=== PATIENT | female | born 1955 ===

== ENCOUNTER 2021-07-13 09:01 | Emergency (ER) | payer MEDICARE, OTHER, SELFPAY ==
--- NOTE | 2021-07-13 09:17 | ED_ITS ---
HPI - General Adult General Chief complaint: Urogenital-Female Stated complaint: kidney infection Time Seen by Provider: 07/13/21 09:03 Source: patient Mode of arrival: Ambulatory Limitations: no limitations History of Present Illness HPI narrative: 65-year-old female who was sent to the emergency department by her primary provider for evaluation potential kidney infection. Patient states that 2 weeks ago she was diagnosed with a urinary tract infection after having dysuria and urinary frequency and urgency. She was placed on Macrobid. She stated that her symptoms improved but then when she stopped the antibiotics they came back again. She was then switched to Cipro. She has 1 day left of the Cipro. She states that since she started the Cipro she has continued to have symptoms which she describes as lower back pain. She is not having any dysuria or frequency. No fevers. No abdominal pain. No nausea vomiting. No diarrhea. Related Data Previous Rx's Medication Instructions Recorded phenazopyridine 100 mg tablet 100 mg PO TID PRN #6 tab 07/13/21 (Pyridium) Allergies Allergy/AdvReac Type Severity Reaction Status Date / Time dextrose AdvReac Mild NAUSEA Verified 07/13/21 09:26 hydrochlorothiazide AdvReac Mild MEMORY LOSS Verified 07/13/21 09:26 potassium AdvReac Mild NAUSEA Verified 07/13/21 09:26 sodium chloride AdvReac Mild NAUSEA Verified 07/13/21 09:26 Sulfa (Sulfonamide AdvReac Mild BACK PAIN Verified 07/13/21 09:26 Antibiotics) zolpidem AdvReac Mild MEMORY LOSS Verified 07/13/21 09:26 Review of Systems Review of Systems ROS Unobtainable: All systems reviewed & are unremarkable except as noted in HPI and below Patient History Medical History Hypothyroid Social History (Updated 07/13/21 @ 09:19 by Broderick Garvin DO) lives independently: Yes Smoking Status: Never smoker Exam Initial Vital Signs Initial Vital Signs: Vital Signs Temperature 98.8 F 07/13/21 09:21 Pulse Rate 60 07/13/21 09:21 Respiratory Rate 18 07/13/21 09:21 Blood Pressure 141/82 H 07/13/21 09:21 Pulse Oximetry 100 07/13/21 09:21 HENMT Head: normal to inspection and normocephalic Resp Effort & Inspection: normal respiratory effort Auscultation: clear to auscultation bilaterally Cardio Rate: regular rate Rhythm: regular rhythm GI Inspection: normal to inspection Palpation: soft, No firm and No tender Back/Spine/Pelvis Back: No CVA tenderness Thoracic/Lumbar Spine: paraspinal tenderness (Bilateral lower lumbar), No thoracic spinal tenderness and No lumbar spinal tenderness Skin General: no rashes or lesions noted Neuro General: patient alert, patient awake and moves all extremities Extrem General: normal to inspection and capillary refill normal Psych Appearance: grossly normal and well kempt Course Orders Ordered: ED Orders 07/13/21 09:50 Basic Metabolic Panel Stat Complete Blood Count AUTO DIFF Stat Lactate (Lactic Acid) Stat 07/13/21 10:05 Urinalysis and Microscopic Stat Urine Culture Stat Urine Culture Stat Vital Signs Vital signs: Vital Signs - 8 hr 07/13/21 09:21 Temperature 98.8 F Pulse Rate 60 Respiratory Rate 18 Blood Pressure 141/82 H Pulse Oximetry 100 Medical Decision Making Medical Records Medical records reviewed: Yes I reviewed the patient's medical records. Lab Data Lab results reviewed: Yes I reviewed the patient's lab results. Result diagrams: 07/13/21 09:50 07/13/21 09:50 Labs: Lab Results 07/13/21 07/13/21 07/13/21 Range/Units 09:50 09:50 09:50 WBC 5.6 (4.5-11.0) X10^3/uL RBC 4.96 (4.0-5.2) X10^6/uL Hgb 15.3 (12.0-16.0) g/dL Hct 44.4 (36-46) % MCV 89.5 (80-100) fL MCH 30.8 (26-34) PG MCHC 34.4 (30-36) % RDW 13.2 (11.6-14.8) % Plt Count 189 (150-400) X10^3/uL Neut % (Auto) 64.0 (50-75) % Lymph % (Auto) 23.9 L (25-40) % [place] % (Auto) 9.6 (3-14) % Eos % (Auto) 1.9 L (2-4) % Baso % (Auto) 0.6 (0-2) % Neut # (Auto) 3600 (7707-0556) /uL Lymph # (Auto) 1300 (8047-8482) /uL [place] # (Auto) 500 (0-900) /uL Eos # (Auto) 100 (0-450) /uL Baso # (Auto) 0 (0-100) /uL Sodium 136 L (137-145) mmol/L Potassium 3.7 (3.4-5.1) mmol/L Chloride 102 (98-107) mmol/L Carbon Dioxide 31 (22-32) mmol/L BUN 15 (7-17) mg/dL Creatinine 0.74 (0.52-1.04) mg/dL Estimated GFR > 60 (>60) mL/min BUN/Creatinine Ratio 20.3 (6-22) Glucose 105 (80-110) mg/dL Lactate 1.1 (0.7-2.1) mmol/L Calcium 8.7 (8.4-10.2) mg/dL Urine Color Urine Appearance Urine pH (4.5-8.0) Ur Specific [place] (1.000-1.035) Urine Protein (Negative) Urine Glucose (UA) (Negative) g/dL Urine Ketones (NEGATIVE) Urine Occult Blood (Negative) Urine Nitrate (Negative) Urine Bilirubin (NEGATIVE) Urine Urobilinogen (0.2) E.U./dL Ur Leukocyte Esterase (NEGATIVE) Urine RBC (0-5/HPF) Urine WBC (0-5/HPF) Ur Squamous Epith Cells (0-5/HPF) Amorphous Sediment Urine Bacteria (None) Ur Culture Indicated? 07/13/21 Range/Units 10:05 WBC (4.5-11.0) X10^3/uL RBC (4.0-5.2) X10^6/uL Hgb (12.0-16.0) g/dL Hct (36-46) % MCV (80-100) fL MCH (26-34) PG MCHC (30-36) % RDW (11.6-14.8) % Plt Count (150-400) X10^3/uL Neut % (Auto) (50-75) % Lymph % (Auto) (25-40) % [place] % (Auto) (3-14) % Eos % (Auto) (2-4) % Baso % (Auto) (0-2) % Neut # (Auto) (9040-5331) /uL Lymph # (Auto) (7791-6473) /uL [place] # (Auto) (0-900) /uL Eos # (Auto) (0-450) /uL Baso # (Auto) (0-100) /uL Sodium (137-145) mmol/L Potassium (3.4-5.1) mmol/L Chloride (98-107) mmol/L Carbon Dioxide (22-32) mmol/L BUN (7-17) mg/dL Creatinine (0.52-1.04) mg/dL Estimated GFR (>60) mL/min BUN/Creatinine Ratio (6-22) Glucose (80-110) mg/dL Lactate (0.7-2.1) mmol/L Calcium (8.4-10.2) mg/dL Urine Color Yellow Urine Appearance Clear Urine pH 5.0 (4.5-8.0) Ur Specific [place] 1.010 (1.000-1.035) Urine Protein Negative (Negative) Urine Glucose (UA) Negative (Negative) g/dL Urine Ketones Negative (NEGATIVE) Urine Occult Blood Trace-lysed (Negative) Urine Nitrate Negative (Negative) Urine Bilirubin Negative (NEGATIVE) Urine Urobilinogen 0.2 (0.2) E.U./dL Ur Leukocyte Esterase Trace H (NEGATIVE) Urine RBC 0-1/hpf (0-5/HPF) Urine WBC 5-10/hpf H (0-5/HPF) Ur Squamous Epith Cells 0-1 /hpf (0-5/HPF) Amorphous Sediment 3+ Urine Bacteria Few (2-10) H (None) Ur Culture Indicated? Specimen cultured MDM Narrative Medical decision making narrative: Nontoxic. Afebrile. No leukocytosis. Normal kidney function. Does have bacteria white blood cells in her urine. Patient does have paperwork from urine cultures performed the outside facility. Does show a E coli that was sensitive to everything except for Macrobid. Macrobid was the 1st antibiotic that she was on. She is currently on Cipro and this bacteria his susceptible to this. She has 1 tablet left of the Cipro. Her lower back discomfort is lower than the level of the kidneys. No CVA tenderness. Low suspicion for pyelonephritis. Will give 2 g of Rocephin here in the ER. A urine culture was obtained. Will hold on changing any other antibiotics until then. We will give her prescription for Pyridium. She was given return precautions. She expressed understanding and agreement. Discharge Plan Departure Patient Disposition: Home Clinical Impression: Urinary tract infection Instructions: DI for Urinary Tract Infection (UTI) Activity Restrictions/Additional Instructions: Continue to take the last dose of Cipro as directed. Contact your primary provider for a follow-up. Use the Pyridium as needed for any discomfort. Return to the emergency department for any new symptoms. Prescriptions: New phenazopyridine [Pyridium] 100 mg tablet 100 mg PO TID PRN (Reason: pain) Qty: 6 0RF Referrals: Jude Miranda DO [Primary Care Provider] -
[2021-07-13 09:21] VITALS: BP 141/82; PULSE 60; RESP 18; TEMP 37.1; O2SAT 100; BMI 25.4
[2021-07-13 10:08] LABS: Add Manual Diff / Slide Review NO; Basophils Absolute Auto 0 /uL (0-100); Basophils Percent Auto 0.6 % (0-2); Eosinophils Absolute Auto 100 /uL (0-450); Eosinophils Percent Auto 1.9 % (2-4); Hematocrit 44.4 % (36-46); Hemoglobin 15.3 g/dL (12.0-16.0); Lymphocytes Absolute Auto 1300 /uL (1100-4500); Lymphocytes Percent Auto 23.9 % (25-40); Mean Corpuscular HGB Conc 34.4 % (30-36); Mean Corpuscular Hemoglobin 30.8 PG (26-34); Mean Corpuscular Volume 89.5 fL (80-100); Monocytes Absolute Auto 500 /uL (0-900); Monocytes Percent Auto 9.6 % (3-14); Neutrophils Absolute Auto 3600 /uL (1500-7000); Platelet Count 189 X10^3/uL (150-400); Red Blood Cell Count 4.96 X10^6/uL (4.0-5.2); Red Cell Distribution Width 13.2 % (11.6-14.8); White Blood Cell Count 5.6 X10^3/uL (4.5-11.0)
[2021-07-13 10:13] LABS: Appearance Urine UA CLEAR; Bilirubin Urine UA NEGATIVE (NEGATIVE); Color Urine UA YELLOW; Glucose Urine UA NEGATIVE (Negative); Ketones Urine UA NEGATIVE (NEGATIVE); Leukocyte Esterase Urine UA TRACE (NEGATIVE); Nitrite Urine UA NEGATIVE (Negative); Occult Blood Urine UA TRACE-LYSED (Negative); Protein Urine UA NEGATIVE (Negative); Urobilinogen Urine UA 0.2 E.U./dL (0.2)
[2021-07-13 10:20] LABS: BUN Creatinine Ratio 20.3 (6-22); Blood Urea Nitrogen 15 mg/dL (7-17); Calcium 8.7 mg/dL (8.4-10.2); Carbon Dioxide 31 mmol/L (22-32); Chloride 102 mmol/L (98-107); Estimated Glomerular Filt Rate > 60 mL/min (>60); Glucose 105 mg/dL (80-110); HEMOLYSIS < 15 (0-50); Lactate (Lactic Acid) 1.1 mmol/L (0.7-2.1); Potassium 3.7 mmol/L (3.4-5.1); Sodium 136 mmol/L (137-145)
[2021-07-13 10:33] LABS: Amorphous Sediment Urine 3+; Bacteria Urine Few (2-10); Culture Indicated Urine Specimen Cultured; RBC Urine 0-1/HPF (0-5/HPF); Squamous Epithelial Cell Urine 0-1 /HPF (0-5/HPF); WBC Urine 5-10/HPF (0-5/HPF)
[2021-07-13] MEDS: cefTRIAXone 2,000 MG in SODIUM CHLORIDE 0.9% 100 ML 200 MG IV (11:00)
[2021-07-13 11:39] VITALS: BP 134/51; PULSE 64; RESP 18; TEMP 36.8; O2SAT 99
== END 2021-07-13 11:39 | disposition home or self-care (01) ==
PROVIDERS: Emergency Provider Emergency Medicine; PCP Family Medicine
DX: N39.0 Urinary tract infection, site not specified (principal)
CPT/HCPCS: 80048; 81001; 83605; 85025; 87086; 96365; 99283; 99284; J0696

== ENCOUNTER 2022-04-29 12:24 | Emergency (ER) | payer MEDICARE, OTHER, SELFPAY ==
[2022-04-29] VITALS (12 sets, daily range): BP systolic 111–157; BP diastolic 57–71; PULSE 71–79; RESP 13–20; TEMP 37.3–38.2; O2SAT 94–98; BMI 25.7
--- NOTE | 2022-04-29 12:38 | DI.RAD.S_ITS ---
PROCEDURE: XR CHEST 1V INDICATIONS: suspected sepsis TECHNIQUE: One view of the chest was acquired. COMPARISON: CT, CHEST ANGIO-PE, 12/02/2010, 17:45. FINDINGS: Surgical changes and devices: Right Port-A-Cath is present. Lungs and pleura: Faint opacities are noted in the right base. Mediastinum: Mediastinal contours appear normal. Heart size is enlarged. Bones and chest wall: Appearance of multiple right-sided rib fractures, appearing chronic Overlying soft tissues appear unremarkable. IMPRESSION: Faint right basilar opacities possibly representing atelectasis versus developing pneumonia. Dictated by: Heidi Vines M.D. on 04/29/2022 at 13:06 Approved by: Heidi Vines M.D. on 04/29/2022 at 13:07
[2022-04-29 12:57] LABS: Add Manual Diff / Slide Review NO; Basophils Absolute Auto 100 /uL (0-100); Basophils Percent Auto 0.4 % (0-2); Eosinophils Absolute Auto 0 /uL (0-450); Eosinophils Percent Auto 0.2 % (2-4); Hematocrit 35.3 % (36-46); Hemoglobin 11.9 g/dL (12.0-16.0); Lymphocytes Absolute Auto 500 /uL (1100-4500); Lymphocytes Percent Auto 2.6 % (25-40); Mean Corpuscular HGB Conc 33.7 % (30-36); Mean Corpuscular Hemoglobin 30.4 PG (26-34); Mean Corpuscular Volume 90.1 fL (80-100); Monocytes Absolute Auto 1900 /uL (0-900); Monocytes Percent Auto 10.7 % (3-14); Neutrophils Absolute Auto 15500 /uL (1500-7000); Neutrophils Percent Auto 86.1 % (50-75); Platelet Count 178 X10^3/uL (150-400); Red Blood Cell Count 3.92 X10^6/uL (4.0-5.2); Red Cell Distribution Width 12.5 % (11.6-14.8)
[2022-04-29 13:01] LABS: INR 1.3 (0.9-1.3); Prothrombin Time 15.1 SECONDS (10.1-12.7)
[2022-04-29 13:06] LABS: Alanine Aminotransferase 20 IU/L (<35); Albumin 3.5 g/dL (3.5-5.0); Albumin Globulin Ratio 1.2 (1.0-2.8); Alkaline Phosphatase 67 U/L (38-126); Aspartate Aminotransferase 22 IU/L (14-36); BUN Creatinine Ratio 18.8 (6-22); Bilirubin Total 0.6 mg/dL (0.2-1.3); Blood Urea Nitrogen 13 mg/dL (7-17); Calcium 8.4 mg/dL (8.4-10.2); Carbon Dioxide 30 mmol/L (22-32); Chloride 97 mmol/L (98-107); Estimated Glomerular Filt Rate > 60 mL/min (>60); Glucose 123 mg/dL (80-110); HEMOLYSIS < 15 (0-50); Lipase 11 U/L (23-300); Potassium 2.9 mmol/L (3.4-5.1); Sodium 134 mmol/L (137-145); Total Protein 6.5 g/dL (6.3-8.2)
[2022-04-29 13:07] LABS: Lactate (Lactic Acid) 1.3 mmol/L (0.7-2.1)
--- NOTE | 2022-04-29 13:10 | ED.GENADULT ---
HPI - General Adult General Chief complaint: Fever Stated complaint: abd pain, sent by iza ryan Time Seen by Provider: 04/29/22 13:00 Source: patient Mode of arrival: Ambulatory History of Present Illness HPI narrative: Patient is a 66-year-old female who has a history of cervical cancer. Has finished treatment. She states her last PET scan was ?reassuring? she recently spent 3 weeks in [place]. She did develop diarrhea while she was down there. That has improved but still having some soft stools. Over the past 7-10 days she states she generally has not felt very well. No vomiting. Does have lower abdominal pain. No urinary symptoms. No vaginal bleeding. No fevers. She was sent by her primary doctor for further evaluation. Related Data Allergies Allergy/AdvReac Type Severity Reaction Status Date / Time dextrose AdvReac Mild NAUSEA Verified 04/29/22 12:42 hydrochlorothiazide AdvReac Mild MEMORY LOSS Verified 04/29/22 12:42 potassium AdvReac Mild NAUSEA Verified 04/29/22 12:42 sodium chloride AdvReac Mild NAUSEA Verified 04/29/22 12:42 Sulfa (Sulfonamide AdvReac Mild BACK PAIN Verified 04/29/22 12:42 Antibiotics) zolpidem AdvReac Mild MEMORY LOSS Verified 04/29/22 12:42 Review of Systems Constitutional Constitutional: Reports system reviewed and no additional complaints, except as documented Cardiovascular Cardiovascular: Reports system reviewed and no additional complaints, except as documented Respiratory Respiratory: Reports system reviewed and no additional complaints, except as documented Gastrointestinal Gastrointestinal: Reports system reviewed and no additional complaints, except as documented Integumentary/Breasts Skin/Breast: Reports system reviewed and no additional complaints, except as documented Neurologic Neurologic: Reports system reviewed and no additional complaints, except as documented Hematologic/Lymphatic On Anticoagulants: No Patient History Medical History Hypothyroid Social History lives independently: Yes Smoking Status: Never smoker Smoking Status: Never smoker alcohol intake frequency: other Substance Use Type: does not use Exam Initial Vital Signs Initial Vital Signs: Vital Signs Temperature 100.8 F H 04/29/22 12:39 Pulse Rate 76 04/29/22 12:39 Respiratory Rate 17 04/29/22 12:39 Blood Pressure 111/57 L 04/29/22 12:39 Pulse Oximetry 98 04/29/22 12:39 Oxygen Delivery Method Room Air 04/29/22 12:39 Const General: cooperative, comfortable and No ill appearing HENMT Head: normal to inspection and normocephalic Cardio Rate: regular rate Rhythm: regular rhythm GI Inspection: normal to inspection and non-distended Palpation: tender Back/Spine/Pelvis Back: No CVA tenderness Skin General: no rashes or lesions noted Neuro General: patient alert, patient awake and moves all extremities Extrem General: normal to inspection Course Orders Ordered: ED Orders 04/29/22 12:38 XR chest 1V Stat EKG-12 Lead Stat RT Consult Eval and Treat NOW 04/29/22 12:44 Complete Blood Count AUTO DIFF Stat Comprehensive Metabolic Panel Stat Lactate (Lactic Acid) Stat Lipase Stat PTT Partial Thromboplastin Lucien Stat Procalcitonin Stat Prothrombin Time INR Stat 04/29/22 13:12 CT abdomen pelvis w con Stat 04/29/22 13:19 COVID19 -Nasal RAPID Stat 04/29/22 13:40 Urine Culture Stat Urine Microscopic Stat 04/29/22 14:59 Blood Culture Stat Discontinued Medications Sodium Chloride (Normal Saline 0.9%) 1,000 mls @ 1,000 mls/hr IV BOLUS ONE Stop: 04/29/22 13:37 Last Infusion: 04/29/22 15:05 Dose: 0 mls/hr Documented By: Admin: 04/29/22 13:11 Dose: 1,000 mls/hr Documented By: ARUNA Morphine Sulfate (Morphine 4 Mg/Ml Inj) 4 mg IV NOW ONE Stop: 04/29/22 13:29 Last Admin: 04/29/22 13:45 Dose: 4 mg Documented By: ARUNA Vital Signs Vital signs: Vital Signs - 8 hr 04/29/22 12:39 04/29/22 13:15 04/29/22 13:45 Temperature 100.8 F H Pulse Rate 76 73 77 Respiratory Rate 17 18 18 Blood Pressure 111/57 L 149/63 H 157/71 H Pulse Oximetry 98 96 98 Oxygen Delivery Method Room Air Room Air Room Air 04/29/22 13:47 04/29/22 14:00 04/29/22 14:00 Temperature Pulse Rate 78 79 Respiratory Rate 13 19 Blood Pressure 135/62 Pulse Oximetry 98 95 Oxygen Delivery Method Room Air 04/29/22 14:30 04/29/22 14:30 04/29/22 15:08 Temperature 99.2 F Pulse Rate 77 Respiratory Rate 18 Blood Pressure 135/61 Pulse Oximetry 95 Oxygen Delivery Method 04/29/22 15:00 04/29/22 15:00 04/29/22 15:30 Temperature Pulse Rate 76 Respiratory Rate Blood Pressure 131/63 124/61 Pulse Oximetry 95 Oxygen Delivery Method 04/29/22 15:30 04/29/22 16:00 04/29/22 16:00 Temperature Pulse Rate 72 71 Respiratory Rate 13 13 Blood Pressure 122/60 Pulse Oximetry 95 95 Oxygen Delivery Method 04/29/22 16:30 04/29/22 16:30 Temperature Pulse Rate 72 Respiratory Rate 20 Blood Pressure 123/58 L Pulse Oximetry 94 Oxygen Delivery Method Medical Decision Making Medical Records Medical records reviewed: Yes I reviewed the patient's medical records. Lab Data Lab results reviewed: Yes I reviewed the patient's lab results. 04/29/22 12:44 04/29/22 12:44 Labs: Lab Results 04/29/22 04/29/22 04/29/22 Range/Units 12:44 12:44 12:44 WBC 18.0 H (4.5-11.0) X10^3/uL RBC 3.92 L (4.0-5.2) X10^6/uL Hgb 11.9 L (12.0-16.0) g/dL Hct 35.3 L (36-46) % MCV 90.1 (80-100) fL MCH 30.4 (26-34) PG MCHC 33.7 (30-36) % RDW 12.5 (11.6-14.8) % Plt Count 178 (150-400) X10^3/uL Neut % (Auto) 86.1 H (50-75) % Lymph % (Auto) 2.6 L (25-40) % [place] % (Auto) 10.7 (3-14) % Eos % (Auto) 0.2 L (2-4) % Baso % (Auto) 0.4 (0-2) % Neut # (Auto) 49638 H (2266-1946) /uL Lymph # (Auto) 500 L (6089-0035) /uL [place] # (Auto) 1900 H (0-900) /uL Eos # (Auto) 0 (0-450) /uL Baso # (Auto) 100 (0-100) /uL PT 15.1 H (10.1-12.7) SECONDS INR 1.3 (0.9-1.3) APTT 32 (26-36) SECONDS Sodium 134 L (137-145) mmol/L Potassium 2.9 L (3.4-5.1) mmol/L Chloride 97 L (98-107) mmol/L Carbon Dioxide 30 (22-32) mmol/L BUN 13 (7-17) mg/dL Creatinine 0.69 (0.52-1.04) mg/dL Estimated GFR > 60 (>60) mL/min BUN/Creatinine Ratio 18.8 (6-22) Glucose 123 H (80-110) mg/dL Lactate (0.7-2.1) mmol/L Calcium 8.4 (8.4-10.2) mg/dL Total Bilirubin 0.6 (0.2-1.3) mg/dL AST 22 (14-36) IU/L ALT 20 (<35) IU/L Alkaline Phosphatase 67 (38-126) U/L Total Protein 6.5 (6.3-8.2) g/dL Albumin 3.5 (3.5-5.0) g/dL Globulin 3.0 (1.7-4.1) g/dL Albumin/Globulin Ratio 1.2 (1.0-2.8) Lipase 11 L (23-300) U/L Procalcitonin 0.19 (<0.5) ng/mL Urine RBC (0-5/HPF) Urine WBC (0-5/HPF) Amorphous Sediment Urine Bacteria (None) Urine Mucus (Negative) Ur Culture Indicated? SARS-CoV-2 (PCR) (Negative) 04/29/22 04/29/22 04/29/22 Range/Units 12:44 13:19 13:40 WBC (4.5-11.0) X10^3/uL RBC (4.0-5.2) X10^6/uL Hgb (12.0-16.0) g/dL Hct (36-46) % MCV (80-100) fL MCH (26-34) PG MCHC (30-36) % RDW (11.6-14.8) % Plt Count (150-400) X10^3/uL Neut % (Auto) (50-75) % Lymph % (Auto) (25-40) % [place] % (Auto) (3-14) % Eos % (Auto) (2-4) % Baso % (Auto) (0-2) % Neut # (Auto) (9407-0324) /uL Lymph # (Auto) (4050-4644) /uL [place] # (Auto) (0-900) /uL Eos # (Auto) (0-450) /uL Baso # (Auto) (0-100) /uL PT (10.1-12.7) SECONDS INR (0.9-1.3) APTT (26-36) SECONDS Sodium (137-145) mmol/L Potassium (3.4-5.1) mmol/L Chloride (98-107) mmol/L Carbon Dioxide (22-32) mmol/L BUN (7-17) mg/dL Creatinine (0.52-1.04) mg/dL Estimated GFR (>60) mL/min BUN/Creatinine Ratio (6-22) Glucose (80-110) mg/dL Lactate 1.3 (0.7-2.1) mmol/L Calcium (8.4-10.2) mg/dL Total Bilirubin (0.2-1.3) mg/dL AST (14-36) IU/L ALT (<35) IU/L Alkaline Phosphatase (38-126) U/L Total Protein (6.3-8.2) g/dL Albumin (3.5-5.0) g/dL Globulin (1.7-4.1) g/dL Albumin/Globulin Ratio (1.0-2.8) Lipase (23-300) U/L Procalcitonin (<0.5) ng/mL Urine RBC 0-1/hpf (0-5/HPF) Urine WBC 5-10/hpf H (0-5/HPF) Amorphous Sediment 1+ Urine Bacteria Occasional (0-1) (None) Urine Mucus 3+ H (Negative) Ur Culture Indicated? Specimen cultured SARS-CoV-2 (PCR) Negative (Negative) Urine Dip Bedside Urine Glucose Negative Bedside Urine Bilirubin - Negative Bedside Urine Ketone +++ 80 Urine Specific [place] 1.015 Bedside Urine Occult Blood +++ Bedside Urine pH 6.0 Bedside Urine Protein ++ 100 Bedside Urine Urobilinogen +/- 1mg Bedside Urine Nitrite - Negative Bedside Urine Leukocytes - Negative Esterase Point of care testing: Urine Dip Bedside Urine Glucose Negative Bedside Urine Bilirubin - Negative Bedside Urine Ketone +++ 80 Urine Specific [place] 1.015 Bedside Urine Occult Blood +++ Bedside Urine pH 6.0 Bedside Urine Protein ++ 100 Bedside Urine Urobilinogen +/- 1mg Bedside Urine Nitrite - Negative Bedside Urine Leukocytes - Negative Esterase Imaging Data Chest x-ray: Radiologist's Impression: PROCEDURE:? XR CHEST 1V ? INDICATIONS:? suspected sepsis ? TECHNIQUE:? One view of the chest was acquired.? ? COMPARISON:? CT, CHEST ANGIO-PE, 12/02/2010, 17:45. ? FINDINGS:? ? Surgical changes and devices:? Right Port-A-Cath is present. ? Lungs and pleura:? Faint opacities are noted in the right base. ? Mediastinum:? Mediastinal contours appear normal.? Heart size is enlarged. ? Bones and chest wall:? Appearance of multiple right-sided rib fractures, appearing chronic Overlying soft tissues appear unremarkable.? ? IMPRESSION:? Faint right basilar opacities possibly representing atelectasis versus developing pneumonia CT scan - abdomen/pelvis: Radiologist's Impression: PROCEDURE:? CT ABDOMEN PELVIS W CON ? INDICATIONS:? History of cervical cancer with generalized lower abdominal ? TECHNIQUE:? After the administration of IV contrast, axial sections were acquired from the lung bases to the pubic symphysis.? Coronal and sagittal reformats were performed.? For radiation dose reduction, the following was used:? automated exposure control, adjustment of mA and/or kV according to patient size. ? COMPARISON:? None. ? FINDINGS:? Image quality:? Portions of the lower pelvis are suboptimally evaluated secondary to metallic streak artifact from sacroiliac fusion. ? Lung bases:? Unremarkable.? ? Heart:? Mild pericardial effusion.. ? ? ABDOMEN: Liver:? Hepatic steatosis is present with several scattered subcentimeter areas of low attenuation. Gallbladder:? Unremarkable.? ? Biliary ducts:? Unremarkable.? ? Pancreas:? Unremarkable.? ? Spleen:? Subcentimeter low attenuation foci are present within the spleen. Adrenal Glands:? Unremarkable.? ? Kidneys and Ureters:? Unremarkable.? ? ? Stomach and Bowel:? Stomach, small bowel loops, and colon are unremarkable.? Peritoneum:? No abnormal intraperitoneal fluid.? No free air.? ? Ventral Wall: ? No hernia.? Abdominal Nodes:? No retroperitoneal or mesenteric adenopathy by size criteria.? Vessels:? Aorta and inferior vena cava are normal in size.? ? PELVIS: Pelvic Organs:? There is marked thickening with low-attenuation internal distention of what appears to be the uterus extending to the lower uterine canal.? No priors are available for comparison.? Bladder:? The bladder is noted in the anterior most aspect of the lower pelvis incompletely distended. Pelvic Nodes: No enlarged lymph nodes.? Miscellaneous: No inguinal hernias are seen. ? ? ? Bones:? Sacroiliac fusion.? Old-appearing right 7th and 8th rib fractures.? They are incompletely visualized.? Old inferior right pubic ramus fracture. ? ? IMPRESSION:? ? Marked thickening of what appears to be the uterine wall with distension secondary to prominent internal low attenuation.? No priors are available for comparison.? Appearance appears most consistent with given history of cervical cancer.? Marked wall thickening may be secondary to treatment change. ? No acute intra-abdominal or pelvic process.? ECG Data Attestation: I personally reviewed and interpreted this ECG as follows: Interpretation: Sinus rhythm Ventricular rate is 73 Normal axis Normal QRS Normal QTC Nonspecific ST T wave changes MDM Narrative Medical decision making narrative: Patient does have a leukocytosis but a normal lactate and normal procalcitonin. She is nontoxic appearing. Chest x-ray has subtle opacities however clinically she does not have pneumonia. She is not having a productive cough and is not hypoxic and is not tachypneic and does not have abnormal lung sounds. Patient is also not having any urinary symptoms despite having bacteria and white blood cells in her urine. The CT scan of the abdomen shows no acute pathology. I did discuss the case with the patient's primary doctor Dr. Beard. We discussed her presentation today. We discussed her history. We discussed starting her on antibiotics I would potentially cover a pneumonia or urinary tract infection however there is also some concern that this may be a GI source. The patient is unable to provide us a stool sample here in the ER. Primary provider has ordered stool samples as an outpatient. After this discussion we will hold on further workup for now. I discussed this with the patient as well. Will discharge patient home. Primary doctor will follow her up in the next couple days. Cultures are pending at the time of her discharge. Discharge Plan Departure Patient Disposition: Home Clinical Impression: Fatigue, Hypokalemia Instructions: DI for Fatigue Activity Restrictions/Additional Instructions: I did discuss your presentation today with your primary doctor. After this discussion she would like to hold on any antibiotics and wait until the stool studies have completed. You do need to stop [place] lab [place] [employer] in [place] to parts picker supplies for this. Your potassium was somewhat low today. I recommend that you increase your potassium rich foods for the next couple days. Continue to take all your medications as directed. Return to the emergency department for any new or worsening symptoms. Referrals: Jude Miranda DO [Primary Care Provider] - Stand Alone Forms: Patient Portal/API
[2022-04-29 13:11] LABS: PTT Partial Thromboplastin Tim 32 SECONDS (26-36)
[2022-04-29] MEDS: SODIUM CHLORIDE 0.9% 1,000 ML 1000 ML IV (13:11)
--- NOTE | 2022-04-29 13:12 | DI.CT.S_ITS ---
PROCEDURE: CT ABDOMEN PELVIS W CON INDICATIONS: History of cervical cancer with generalized lower abdominal TECHNIQUE: After the administration of IV contrast, axial sections were acquired from the lung bases to the pubic symphysis. Coronal and sagittal reformats were performed. For radiation dose reduction, the following was used: automated exposure control, adjustment of mA and/or kV according to patient size. COMPARISON: None. FINDINGS: Image quality: Portions of the lower pelvis are suboptimally evaluated secondary to metallic streak artifact from sacroiliac fusion. Lung bases: Unremarkable. Heart: Mild pericardial effusion.. ABDOMEN: Liver: Hepatic steatosis is present with several scattered subcentimeter areas of low attenuation. Gallbladder: Unremarkable. Biliary ducts: Unremarkable. Pancreas: Unremarkable. Spleen: Subcentimeter low attenuation foci are present within the spleen. Adrenal Glands: Unremarkable. Kidneys and Ureters: Unremarkable. Stomach and Bowel: Stomach, small bowel loops, and colon are unremarkable. Peritoneum: No abnormal intraperitoneal fluid. No free air. Ventral Wall: No hernia. Abdominal Nodes: No retroperitoneal or mesenteric adenopathy by size criteria. Vessels: Aorta and inferior vena cava are normal in size. PELVIS: Pelvic Organs: There is marked thickening with low-attenuation internal distention of what appears to be the uterus extending to the lower uterine canal. No priors are available for comparison. Bladder: The bladder is noted in the anterior most aspect of the lower pelvis incompletely distended. Pelvic Nodes: No enlarged lymph nodes. Miscellaneous: No inguinal hernias are seen. Bones: Sacroiliac fusion. Old-appearing right 7th and 8th rib fractures. They are incompletely visualized. Old inferior right pubic ramus fracture. IMPRESSION: Marked thickening of what appears to be the uterine wall with distension secondary to prominent internal low attenuation. No priors are available for comparison. Appearance appears most consistent with given history of cervical cancer. Marked wall thickening may be secondary to treatment change. No acute intra-abdominal or pelvic process. Dictated by: Heidi Vines M.D. on 04/29/2022 at 14:34 Approved by: Heidi Vines M.D. on 04/29/2022 at 14:41
[2022-04-29 13:23] LABS: Procalcitonin 0.19 ng/mL (<0.5)
[2022-04-29 13:40] LABS: COVID19 -Nasal RAPID Negative (Negative)
[2022-04-29] MEDS: MORPHINE 4 MG/ML INJ IV (13:45)
[2022-04-29 14:17] LABS: Amorphous Sediment Urine 1+; Bacteria Urine Occasional (0-1); Culture Indicated Urine Specimen Cultured; Mucus Urine 3+ (Negative); RBC Urine 0-1/HPF (0-5/HPF); WBC Urine 5-10/HPF (0-5/HPF)
== END 2022-04-29 17:27 | disposition home or self-care (01) ==
PROVIDERS: Emergency Provider Emergency Medicine; PCP Family Medicine
DX: E87.6 Hypokalemia (principal); R53.83 Other fatigue; R10.30 Lower abdominal pain, unspecified; Z20.822 Contact with and (suspected) exposure to COVID-19
CPT/HCPCS: 36415; 71045; 74177; 80053; 81003; 81015; 83605; 83690; 84145; 85025; 85610; 85730; 87040; 87086; 87635; 93005; 93010; 96361; 96374; 99284; 99285; C9803; J2270; Q9967

== ENCOUNTER 2022-08-06 06:57 | Emergency (ER) | payer MEDICARE, OTHER, SELFPAY ==
[2022-08-06] VITALS (12 sets, daily range): BP systolic 128–147; BP diastolic 61–72; PULSE 65–70; RESP 18; TEMP 36.6; O2SAT 91–97; BMI 26.4
--- NOTE | 2022-08-06 07:30 | ED.GIBLEED ---
HPI - GI Bleed General Chief complaint: Nausea/Vomiting/Diarrhea Stated complaint: black stool, n/v Time Seen by Provider: 08/06/22 07:06 Source: patient Mode of arrival: Ambulatory History of Present Illness HPI Narrative: Patient is a 67-year-old female history of hypertension, cervical cancer treated in March, she presents today with black stools. Some going on for the last 2 days. She is having some lower abdominal pain well. She feels a little dizzy and lightheaded. She is not on antiplatelet or anticoagulation medication. She denies nausea or vomiting. She is not taken Pepto-Bismol or iron. gave her some Imodium yesterday she is not diarrhea today. She is definitely having some lower abdominal cramping. Related Data Previous Rx's Medication Instructions Recorded ondansetron 4 mg disintegrating 4 mg PO Q8H PRN nausea and 08/06/22 tablet vomiting #10 tabs Allergies Allergy/AdvReac Type Severity Reaction Status Date / Time dextrose AdvReac Mild NAUSEA Verified 04/29/22 12:42 hydrochlorothiazide AdvReac Mild MEMORY LOSS Verified 04/29/22 12:42 potassium AdvReac Mild NAUSEA Verified 04/29/22 12:42 sodium chloride AdvReac Mild NAUSEA Verified 04/29/22 12:42 Sulfa (Sulfonamide AdvReac Mild BACK PAIN Verified 04/29/22 12:42 Antibiotics) zolpidem AdvReac Mild MEMORY LOSS Verified 04/29/22 12:42 Review of Systems Review of Systems ROS Unobtainable: All systems reviewed & are unremarkable except as noted in HPI and below Patient History Medical History Hypothyroid Social History lives independently: Yes Smoking Status: Never smoker Smoking Status: Never smoker alcohol intake frequency: other Substance Use Type: does not use Exam Initial Vital Signs Initial Vital Signs: Vital Signs Pulse Rate 70 08/06/22 07:14 Blood Pressure 132/61 08/06/22 07:14 Pulse Oximetry 95 08/06/22 07:14 GENERAL: Alert 67-year-old female and in no acute distress. HEENT: Head atraumatic,EOMI, pupils reactive, face symmetric, moist mucous membranes CARDIOVASCULAR: Regular rate and rhythm without murmurs, rubs or gallops. RESPIRATORY: Breath sounds equal bilaterally, no wheezes rales or rhonchi. ABDOMEN: Soft, tender right lower quadrant no distention no guarding no rebound EXTREMITIES: Normal range of motion, no clubbing or edema. Neurovascularly intact NEUROLOGICAL: Alert and oriented x4. SKIN: Warm, dry, no laceration, no petechiae, no rashes or lesions. Course Orders Ordered: ED Orders 08/06/22 07:35 Complete Blood Count AUTO DIFF Stat Comprehensive Metabolic Panel Stat Lactate (Lactic Acid) Stat Lipase Stat Type and Screen Stat 08/06/22 07:36 CT abdomen pelvis w con Stat 08/06/22 08:06 Ictotest Urine Stat Urine Culture Stat Urine Microscopic Stat Discontinued Medications Heparin Sodium (Porcine) (Heparin 500 Unit/5 Ml Port Flush) 500 unit IV PRN PRN PRN Reason: Flush Last Admin: 08/06/22 10:33 Dose: 500 unit Documented By: CHELSEA Sodium Chloride (Normal Saline 0.9%) 1,000 mls @ 1,000 mls/hr IV BOLUS ONE Stop: 08/06/22 09:51 Last Infusion: 08/06/22 10:36 Dose: 0 mls/hr Documented By: Admin: 08/06/22 09:15 Dose: 1,000 mls/hr Documented By: CHELSEA Ketorolac Tromethamine (Ketorolac 30 Mg/Ml Vial) 15 mg IV NOW ONE Stop: 08/06/22 09:49 Last Admin: 08/06/22 10:02 Dose: 15 mg Documented By: CHELSEA Morphine Sulfate (Morphine 2 Mg/Ml Inj) 2 mg IV NOW ONE Stop: 08/06/22 08:53 Last Admin: 08/06/22 09:16 Dose: 2 mg Documented By: CHELSEA Pantoprazole Sodium (Pantoprazole 40 Mg Vial) 80 mg IV NOW ONE Stop: 08/06/22 07:18 Last Admin: 08/06/22 07:59 Dose: 80 mg Documented By: CHESLEA Vital Signs Vital signs: Vital Signs - 8 hr 08/06/22 07:18 08/06/22 07:14 08/06/22 07:14 Temperature 97.8 F Pulse Rate 69 70 Respiratory Rate 18 Blood Pressure 128/63 132/61 Pulse Oximetry 96 95 Oxygen Delivery Method Room Air 08/06/22 07:15 08/06/22 07:15 08/06/22 07:20 Temperature Pulse Rate 69 66 Respiratory Rate Blood Pressure 128/63 Pulse Oximetry 95 93 Oxygen Delivery Method 08/06/22 07:20 08/06/22 07:30 08/06/22 07:40 Temperature Pulse Rate 65 67 Respiratory Rate Blood Pressure 129/66 Pulse Oximetry 94 94 Oxygen Delivery Method 08/06/22 07:40 08/06/22 09:07 08/06/22 09:05 Temperature Pulse Rate 67 66 Respiratory Rate Blood Pressure 128/61 144/68 H Pulse Oximetry 95 91 Oxygen Delivery Method Room Air 08/06/22 09:06 08/06/22 09:30 08/06/22 10:00 Temperature Pulse Rate 67 67 69 Respiratory Rate Blood Pressure Pulse Oximetry 96 92 95 Oxygen Delivery Method 08/06/22 10:30 08/06/22 10:30 Temperature Pulse Rate 69 Respiratory Rate Blood Pressure 147/72 H Pulse Oximetry 97 Oxygen Delivery Method MDM - GI Bleed Lab Data 08/06/22 07:35 08/06/22 07:35 Labs: Lab Results 08/06/22 08/06/22 08/06/22 Range/Units 07:35 07:35 07:35 WBC 19.2 H (4.5-11.0) X10^3/uL RBC 4.06 (4.0-5.2) X10^6/uL Hgb 12.1 (12.0-16.0) g/dL Hct 35.8 L (36-46) % MCV 88.2 (80-100) fL MCH 29.8 (26-34) PG MCHC 33.8 (30-36) % RDW 13.3 (11.6-14.8) % Plt Count 241 (150-400) X10^3/uL Neut % (Auto) 90.0 H (50-75) % Lymph % (Auto) 3.0 L (25-40) % [place] % (Auto) 6.8 (3-14) % Eos % (Auto) 0.1 L (2-4) % Baso % (Auto) 0.1 (0-2) % Neut # (Auto) 44149 H (8736-5603) /uL Lymph # (Auto) 600 L (2115-4918) /uL [place] # (Auto) 1300 H (0-900) /uL Eos # (Auto) 0 (0-450) /uL Baso # (Auto) 0 (0-100) /uL Sodium 135 L (137-145) mmol/L Potassium 3.1 L (3.4-5.1) mmol/L Chloride 99 (98-107) mmol/L Carbon Dioxide 28 (22-32) mmol/L BUN 12 (7-17) mg/dL Creatinine 0.68 (0.52-1.04) mg/dL Estimated GFR > 60 (>60) mL/min BUN/Creatinine Ratio 17.6 (6-22) Glucose 132 H (80-110) mg/dL Lactate 0.9 (0.7-2.1) mmol/L Calcium 8.4 (8.4-10.2) mg/dL Total Bilirubin 0.6 (0.2-1.3) mg/dL AST 21 (14-36) IU/L ALT 17 (<35) IU/L Alkaline Phosphatase 57 (38-126) U/L Total Protein 6.6 (6.3-8.2) g/dL Albumin 3.5 (3.5-5.0) g/dL Globulin 3.1 (1.7-4.1) g/dL Albumin/Globulin Ratio 1.1 (1.0-2.8) Lipase 14 L (23-300) U/L Ur Bilirubin Confirm (Negative) Urine RBC (0-5/HPF) Urine WBC (0-5/HPF) Ur Squamous Epith Cells (0-5/HPF) Urine Bacteria (None) Ur Culture Indicated? Blood Type Antibody Screen 08/06/22 08/06/22 08/06/22 Range/Units 07:35 08:06 08:06 WBC (4.5-11.0) X10^3/uL RBC (4.0-5.2) X10^6/uL Hgb (12.0-16.0) g/dL Hct (36-46) % MCV (80-100) fL MCH (26-34) PG MCHC (30-36) % RDW (11.6-14.8) % Plt Count (150-400) X10^3/uL Neut % (Auto) (50-75) % Lymph % (Auto) (25-40) % [place] % (Auto) (3-14) % Eos % (Auto) (2-4) % Baso % (Auto) (0-2) % Neut # (Auto) (3482-3602) /uL Lymph # (Auto) (3683-1352) /uL [place] # (Auto) (0-900) /uL Eos # (Auto) (0-450) /uL Baso # (Auto) (0-100) /uL Sodium (137-145) mmol/L Potassium (3.4-5.1) mmol/L Chloride (98-107) mmol/L Carbon Dioxide (22-32) mmol/L BUN (7-17) mg/dL Creatinine (0.52-1.04) mg/dL Estimated GFR (>60) mL/min BUN/Creatinine Ratio (6-22) Glucose (80-110) mg/dL Lactate (0.7-2.1) mmol/L Calcium (8.4-10.2) mg/dL Total Bilirubin (0.2-1.3) mg/dL AST (14-36) IU/L ALT (<35) IU/L Alkaline Phosphatase (38-126) U/L Total Protein (6.3-8.2) g/dL Albumin (3.5-5.0) g/dL Globulin (1.7-4.1) g/dL Albumin/Globulin Ratio (1.0-2.8) Lipase (23-300) U/L Ur Bilirubin Confirm Negative (Negative) Urine RBC 1-5/hpf (0-5/HPF) Urine WBC 10-30/hpf H (0-5/HPF) Ur Squamous Epith Cells 1-5 /hpf (0-5/HPF) Urine Bacteria None seen (None) Ur Culture Indicated? Specimen cultured Blood Type O Positive Antibody Screen Negative Urine Dip Bedside Urine Glucose Negative Bedside Urine Bilirubin + 1 Bedside Urine Ketone +++ 80 Urine Specific [place] 1.020 Bedside Urine Occult Blood +++ Bedside Urine pH 6.0 Bedside Urine Protein + 30 Bedside Urine Urobilinogen - Negative Bedside Urine Nitrite - Negative Bedside Urine Leukocytes + [address] scan - abdomen/pelvis: Radiologist's Impression: PROCEDURE:? CT ABDOMEN PELVIS W CON ? INDICATIONS:? RLQ pain ? TECHNIQUE:? After the administration of intravenous contrast, axial sections acquired from the lung bases to the pubic symphysis.? Coronal and sagittal reformats were performed.? For radiation dose reduction, the following was used:? automated exposure control, adjustment of mA and/or kV according to patient size.? ? COMPARISON:? [facility], CT, CT ABDOMEN PELVIS W CON, 04/29/2022, 13:25. ? FINDINGS:? Image quality:? Good ? Lower chest:? Basal scarring/atelectasis.? Mildly patulous distal esophagus. ? Solid organs:? Small hepatic cysts and subcentimeter lesions that are stable, too small to characterize. Gallbladder is unremarkable.? No pathologic dilation of the biliary tree or pancreatic duct.? Small splenic granuloma.? No adrenal nodules.? No hydronephrosis. ? Vessels and lymph nodes:? The main portal vein appears patent.? No pathologic lymphadenopathy by size criteria. There are prominent vessels around the adnexa bilaterally.? Prominent vessels are also again seen adjacent to left pericolic gutter. ? Bowel and peritoneum:? No evidence of small bowel obstruction.? No findings of significant inflammation.? Appendix appears normal. ? Body wall:? Unremarkable. ? Pelvis:? Irregular soft tissue thickening, central necrosis, and pericervical fat stranding, compatible reported history of cervical cancer and likely treatment changes.? Endometrium remains distended.? These findings are also seen on previous CT from April.? Bladder wall thickening and hyperemia are also present.? There is perivesicular stranding. ? Bones:? Pelvic bone deformities are again seen.? Trans right sacroiliac screw in place.? There are degenerative changes. ? ? IMPRESSION:? The appendix is nondilated. Cervical cancer with likely post treatment changes and endometrial distension, findings previously seen also in April of 2022. If further evaluation of this region is desired, consider MRI. ? Under distended bladder with wall thickening and surrounding inflammatory changes, correlate with urinalysis. ? Prominent vessels around the adnexa, sometimes seen with pelvic congestion. ? Other findings as above.? ? ? Dictated by: Ethan Hernandez M.D. on 08/06/2022 at 8:28 MDM Narrative Medical decision making narrative: Patient 67-year-old female history of cervical cancer presenting today with diarrhea abdominal pain with black stool. Been ongoing for a number of days she is actually quite tender in her right lower quadrant. CT is done and does not show any abnormality. She is hemodynamically stable. Hemoglobin of 12 hematocrit of 35 Blood work does show leukocytosis of 19.2 previously in April it was 18. She has a mild left shift. A normal lactic acid 0.9, mildly hypokalemic with potassium of 3.1 and a sodium of 135 no [place]. Pain is controlled with morphine and Toradol. She received IV fluids. She is ambulated to the restroom without any difficulty. Rectal was negative for any stool. Her hemoglobin and hematocrit are within normal limits no source of active bleeding at this time. Recommend supportive care only. Discharge Plan Departure Patient Disposition: Home Clinical Impression: Gastroenteritis Instructions: DI for Viral Gastroenteritis -- Adult Activity Restrictions/Additional Instructions: *You have been diagnosed with gastroenteritis *What to do: At this time increase fluid as tolerated Pedialyte or Gatorade like product *Continue to take medications as directed Zofran 4 mg every 8 hours if needed for nausea vomiting--> SEnt to DOD Tylenol 650 mg every 6 hours if needed for vppz-by-deikvvht pain Motrin 600 mg every 6 hours if needed for [id number] pain *Follow up with your primary care provider in 2-3 days or call [phone] *Return to ER if you should have persistent diarrhea vomiting inability to tolerate fluids increasing pain or any new, worsening or concerning symptoms Prescriptions: New ondansetron 4 mg tablet,disintegrating 4 mg PO Q8H PRN (Reason: nausea and vomiting) Qty: 10 0RF Referrals: Jude Miranda DO [Primary Care Provider] - Stand Alone Forms: Patient Portal/API
--- NOTE | 2022-08-06 07:36 | DI.CT.S_ITS ---
PROCEDURE: CT ABDOMEN PELVIS W CON INDICATIONS: RLQ pain TECHNIQUE: After the administration of intravenous contrast, axial sections acquired from the lung bases to the pubic symphysis. Coronal and sagittal reformats were performed. For radiation dose reduction, the following was used: automated exposure control, adjustment of mA and/or kV according to patient size. COMPARISON: [facility], CT, CT ABDOMEN PELVIS W CON, 04/29/2022, 13:25. FINDINGS: Image quality: Good Lower chest: Basal scarring/atelectasis. Mildly patulous distal esophagus. Solid organs: Small hepatic cysts and subcentimeter lesions that are stable, too small to characterize. Gallbladder is unremarkable. No pathologic dilation of the biliary tree or pancreatic duct. Small splenic granuloma. No adrenal nodules. No hydronephrosis. Vessels and lymph nodes: The main portal vein appears patent. No pathologic lymphadenopathy by size criteria. There are prominent vessels around the adnexa bilaterally. Prominent vessels are also again seen adjacent to left pericolic gutter. Bowel and peritoneum: No evidence of small bowel obstruction. No findings of significant inflammation. Appendix appears normal. Body wall: Unremarkable. Pelvis: Irregular soft tissue thickening, central necrosis, and pericervical fat stranding, compatible reported history of cervical cancer and likely treatment changes. Endometrium remains distended. These findings are also seen on previous CT from April. Bladder wall thickening and hyperemia are also present. There is perivesicular stranding. Bones: Pelvic bone deformities are again seen. Trans right sacroiliac screw in place. There are degenerative changes. IMPRESSION: The appendix is nondilated. Cervical cancer with likely post treatment changes and endometrial distension, findings previously seen also in April of 2022. If further evaluation of this region is desired, consider MRI. Under distended bladder with wall thickening and surrounding inflammatory changes, correlate with urinalysis. Prominent vessels around the adnexa, sometimes seen with pelvic congestion. Other findings as above. Dictated by: Ethan Hernandez M.D. on 08/06/2022 at 8:28 Approved by: Ethan Hernandez M.D. on 08/06/2022 at 8:38
[2022-08-06 07:45] LABS: Add Manual Diff / Slide Review NO; Basophils Absolute Auto 0 /uL (0-100); Basophils Percent Auto 0.1 % (0-2); Eosinophils Absolute Auto 0 /uL (0-450); Eosinophils Percent Auto 0.1 % (2-4); Hematocrit 35.8 % (36-46); Hemoglobin 12.1 g/dL (12.0-16.0); Lymphocytes Absolute Auto 600 /uL (1100-4500); Mean Corpuscular HGB Conc 33.8 % (30-36); Mean Corpuscular Hemoglobin 29.8 PG (26-34); Mean Corpuscular Volume 88.2 fL (80-100); Monocytes Absolute Auto 1300 /uL (0-900); Monocytes Percent Auto 6.8 % (3-14); Neutrophils Absolute Auto 17300 /uL (1500-7000); Platelet Count 241 X10^3/uL (150-400); Red Blood Cell Count 4.06 X10^6/uL (4.0-5.2); Red Cell Distribution Width 13.3 % (11.6-14.8); White Blood Cell Count 19.2 X10^3/uL (4.5-11.0)
[2022-08-06] MEDS: PANTOPRAZOLE 40 MG VIAL 80 MG IV (07:59)
[2022-08-06 08:00] LABS: Lactate (Lactic Acid) 0.9 mmol/L (0.7-2.1)
[2022-08-06 08:01] LABS: Alanine Aminotransferase 17 IU/L (<35); Albumin 3.5 g/dL (3.5-5.0); Albumin Globulin Ratio 1.1 (1.0-2.8); Alkaline Phosphatase 57 U/L (38-126); Aspartate Aminotransferase 21 IU/L (14-36); BUN Creatinine Ratio 17.6 (6-22); Bilirubin Total 0.6 mg/dL (0.2-1.3); Blood Urea Nitrogen 12 mg/dL (7-17); Calcium 8.4 mg/dL (8.4-10.2); Carbon Dioxide 28 mmol/L (22-32); Chloride 99 mmol/L (98-107); Estimated Glomerular Filt Rate > 60 mL/min (>60); Globulin 3.1 g/dL (1.7-4.1); Glucose 132 mg/dL (80-110); HEMOLYSIS < 15 (0-50); Lipase 14 U/L (23-300); Potassium 3.1 mmol/L (3.4-5.1); Sodium 135 mmol/L (137-145); Total Protein 6.6 g/dL (6.3-8.2)
[2022-08-06 08:46] LABS: Ictotest Urine Negative (Negative)
[2022-08-06 08:47] LABS: RBC Urine 1-5/HPF (0-5/HPF); Squamous Epithelial Cell Urine 1-5 /HPF (0-5/HPF); WBC Urine 10-30/HPF (0-5/HPF)
[2022-08-06 08:48] LABS: Bacteria Urine None Seen; Culture Indicated Urine Specimen Cultured
[2022-08-06] MEDS: SODIUM CHLORIDE 0.9% 1,000 ML 1000 ML IV (09:15)
[2022-08-06] MEDS: MORPHINE 2 MG/ML INJ IV (09:16)
[2022-08-06] MEDS: KETOROLAC 30 MG/ML VIAL 15 MG IV (10:02)
== END 2022-08-06 10:49 | disposition home or self-care (01) ==
PROVIDERS: Emergency Provider Emergency Medicine; PCP Family Medicine
DX: K52.9 Noninfective gastroenteritis and colitis, unspecified (principal); R10.30 Lower abdominal pain, unspecified; E87.6 Hypokalemia
CPT/HCPCS: 36415; 74177; 80053; 81003; 81015; 83605; 83690; 85025; 86850; 86900; 86901; 87086; 96361; 96374; 96375; 99284; C9113; J1642; J1885; J2270; Q9967

== ENCOUNTER 2022-08-12 08:16 | Emergency (ER) | payer MEDICARE, OTHER, SELFPAY ==
[2022-08-12] VITALS (14 sets, daily range): BP systolic 119–164; BP diastolic 59–70; PULSE 60–71; RESP 8–29; TEMP 37.9; O2SAT 94–98; BMI 25.7
--- NOTE | 2022-08-12 08:32 | ED.GENADULT ---
HPI - General Adult General Chief complaint: Urogenital-Female Stated complaint: infection in female parts Time Seen by Provider: 08/12/22 08:19 Source: patient Mode of arrival: Ambulatory Limitations: no limitations History of Present Illness HPI narrative: Patient is a 67-year-old female. Has a history of cervical cancer. Has completed treatment for this. Still has her cervix and uterus. Is being followed by Oncology. Was seen here couple days ago for lower abdominal discomfort. Had a CT scan performed relatively unremarkable. Did have a leukocytosis. No specific source of infection found. Was discharged home. She states that within the past 12 hours she felt like something ?popped? in her lower abdomen. She then stated that she had what looked like pus coming from her vagina. Afterwards she states she did feel somewhat better but still having fairly significant bilateral lower abdominal discomfort. No urinary symptoms. No change in bowel habits. Continues to have fevers. Related Data Previous Rx's Medication Instructions Recorded ondansetron 4 mg disintegrating 4 mg PO Q8H PRN nausea and 08/06/22 tablet vomiting #10 tabs doxycycline hyclate 100 mg capsule 100 mg PO BID 14 days #28 caps 08/12/22 hydrocodone 5 mg-acetaminophen 325 1 tab PO Q8H PRN pain #10 tabs 08/12/22 mg tablet metronidazole 500 mg tablet 500 mg PO BID 14 days #28 tabs 08/12/22 Allergies Allergy/AdvReac Type Severity Reaction Status Date / Time dextrose AdvReac Mild NAUSEA Verified 04/29/22 12:42 hydrochlorothiazide AdvReac Mild MEMORY LOSS Verified 04/29/22 12:42 potassium AdvReac Mild NAUSEA Verified 04/29/22 12:42 Sulfa (Sulfonamide AdvReac Mild BACK PAIN Verified 04/29/22 12:42 Antibiotics) zolpidem AdvReac Mild MEMORY LOSS Verified 04/29/22 12:42 Review of Systems Review of Systems ROS Unobtainable: All systems reviewed & are unremarkable except as noted in HPI and below Patient History Medical History Hypothyroid Social History lives independently: Yes Smoking Status: Never smoker Smoking Status: Never smoker alcohol intake frequency: other Substance Use Type: does not use Exam Initial Vital Signs Initial Vital Signs: Vital Signs Temperature 100.3 F H 08/12/22 08:21 Pulse Rate 71 08/12/22 08:21 Respiratory Rate 16 08/12/22 08:21 Blood Pressure 119/59 L 08/12/22 08:21 Pulse Oximetry 98 08/12/22 08:21 Oxygen Delivery Method Room Air 08/12/22 08:21 Const General: cooperative, comfortable and No ill appearing HENMT Head: normal to inspection and normocephalic Resp Effort & Inspection: normal respiratory effort Auscultation: clear to auscultation bilaterally Cardio Rate: regular rate Rhythm: regular rhythm GI Inspection: normal to inspection and non-distended Palpation: tender (Bilateral lower abdomen) Other: There does appear to be fluid and purulent material coming from the cervix. I could not get a complete evaluation secondary to the discomfort that the patient was having. Skin General: no rashes or lesions noted Neuro General: patient alert, patient awake and moves all extremities Extrem General: normal to inspection and capillary refill normal Course Orders Ordered: ED Orders 08/12/22 08:33 CT abdomen pelvis w con Stat 08/12/22 08:45 Complete Blood Count AUTO DIFF Stat Comprehensive Metabolic Panel Stat Lactate (Lactic Acid) Stat Lipase Stat 08/12/22 09:10 Blood Culture Stat 08/12/22 10:00 Urinalysis and Microscopic Stat Urine Culture Stat 08/12/22 10:45 Genital Culture Stat MARSHALL prep [MARSHALL Prep] Stat Wet Prep Tric BV Sara Stat Discontinued Medications Doxycycline Hyclate (Doxycycline Hyclate 100 Mg Tablet) 100 mg PO NOW ONE Stop: 08/12/22 11:08 Last Admin: 08/12/22 11:20 Dose: 100 mg Documented By: CHELSEA Heparin Sodium (Porcine) (Heparin 500 Unit/5 Ml Port Flush) 500 unit IV PRN PRN PRN Reason: Flush Last Admin: 08/12/22 13:51 Dose: 500 unit Documented By: AT Sodium Chloride (Normal Saline 0.9%) 1,000 mls @ 1,000 mls/hr IV BOLUS ONE Stop: 08/12/22 09:26 Last Infusion: 08/12/22 10:57 Dose: 0 mls/hr Documented By: Admin: 08/12/22 09:23 Dose: 1,000 mls/hr Documented By: CHELSEA Ceftriaxone Sodium 1,000 mg/ (Sodium Chloride) 100 mls @ 200 mls/hr IV NOW ONE Stop: 08/12/22 08:33 Last Infusion: 08/12/22 10:15 Dose: 0 mls/hr Documented By: Admin: 08/12/22 09:24 Dose: 200 mls/hr Documented By: CHELSEA POTASSIUM CHLORIDE IN WATER (Potassium Cl 10 Meq/100 Ml Mary) 10 meq in 100 mls @ 100 mls/hr IV Q1H [facility] Stop: 08/12/22 14:59 Last Admin: 08/12/22 11:15 Dose: Not Given Documented By: KOURTNEY Ceftriaxone Sodium 1,000 mg/ (Sodium Chloride) 100 mls @ 200 mls/hr IV NOW ONE Stop: 08/12/22 11:08 Last Infusion: 08/12/22 12:03 Dose: 0 mls/hr Documented By: Admin: 08/12/22 11:20 Dose: 200 mls/hr Documented By: CHELSEA POTASSIUM CHLORIDE IN WATER (Potassium Cl 10 Meq/100 Ml Mary) 10 meq in 100 mls @ 100 mls/hr IV Q1H [facility] Stop: 08/12/22 13:14 Last Infusion: 08/12/22 13:25 Dose: 0 mls/hr Documented By: Admin: 08/12/22 12:20 Dose: 100 mls/hr Documented By: Infusion: 08/12/22 12:20 Dose: 100 mls/hr Documented By: Admin: 08/12/22 11:20 Dose: 100 mls/hr Documented By: CHELSEA Metronidazole (Metronidazole 500 Mg Tablet) 500 mg PO NOW ONE Stop: 08/12/22 11:08 Last Admin: 08/12/22 11:20 Dose: 500 mg Documented By: CHELSEA Morphine Sulfate (Morphine 4 Mg/Ml Inj) 4 mg IV NOW ONE Stop: 08/12/22 09:42 Last Admin: 08/12/22 09:45 Dose: 4 mg Documented By: CHELSEA Morphine Sulfate (Morphine 4 Mg/Ml Inj) 4 mg IV NOW ONE Stop: 08/12/22 11:51 Last Admin: 08/12/22 12:11 Dose: 4 mg Documented By: CHELSEA Potassium Chloride (Potassium Chloride 20 Meq Tab) 20 meq PO NOW ONE Stop: 08/12/22 12:16 Last Admin: 08/12/22 12:15 Dose: 20 meq Documented By: CHELSEA Vital Signs Vital signs: Vital Signs - 8 hr 08/12/22 08:21 08/12/22 08:31 08/12/22 08:33 Temperature 100.3 F H Pulse Rate 71 68 67 Respiratory Rate 16 29 H 21 Blood Pressure 119/59 L Pulse Oximetry 98 97 Oxygen Delivery Method Room Air 08/12/22 08:33 08/12/22 08:58 08/12/22 08:58 Temperature Pulse Rate 65 Respiratory Rate Blood Pressure 134/62 139/59 L Pulse Oximetry 95 Oxygen Delivery Method 08/12/22 09:00 08/12/22 09:00 08/12/22 09:30 Temperature Pulse Rate 64 Respiratory Rate Blood Pressure 122/59 L 132/62 Pulse Oximetry 95 Oxygen Delivery Method 08/12/22 10:00 08/12/22 10:00 08/12/22 10:30 Temperature Pulse Rate 63 Respiratory Rate 8 L Blood Pressure 137/63 138/63 Pulse Oximetry 94 Oxygen Delivery Method Room Air 08/12/22 10:30 08/12/22 11:00 08/12/22 11:00 Temperature Pulse Rate 63 63 Respiratory Rate 13 9 L Blood Pressure 137/62 Pulse Oximetry 97 96 Oxygen Delivery Method 08/12/22 11:30 08/12/22 11:30 08/12/22 12:00 Temperature Pulse Rate 62 Respiratory Rate 8 L Blood Pressure 147/63 H 164/70 H Pulse Oximetry 96 Oxygen Delivery Method 08/12/22 12:00 08/12/22 12:31 08/12/22 13:00 Temperature Pulse Rate 69 Respiratory Rate 22 Blood Pressure 139/65 125/60 Pulse Oximetry 97 Oxygen Delivery Method 08/12/22 13:00 08/12/22 13:30 08/12/22 13:30 Temperature Pulse Rate 61 60 Respiratory Rate 18 12 Blood Pressure 136/63 Pulse Oximetry 94 95 Oxygen Delivery Method Room Air Medical Decision Making Lab Data Lab results reviewed: Yes I reviewed the patient's lab results. 08/12/22 08:45 08/12/22 08:45 Labs: Lab Results 08/12/22 08/12/22 08/12/22 Range/Units 08:45 08:45 08:45 WBC 17.4 H (4.5-11.0) X10^3/uL RBC 3.73 L (4.0-5.2) X10^6/uL Hgb 11.2 L (12.0-16.0) g/dL Hct 32.6 L (36-46) % MCV 87.4 (80-100) fL MCH 29.9 (26-34) PG MCHC 34.2 (30-36) % RDW 13.4 (11.6-14.8) % Plt Count 281 (150-400) X10^3/uL Neut % (Auto) 88.2 H (50-75) % Lymph % (Auto) 2.3 L (25-40) % Terrell % (Auto) 9.0 (3-14) % Eos % (Auto) 0.4 L (2-4) % Baso % (Auto) 0.1 (0-2) % Neut # (Auto) 95822 H (9311-0026) /uL Lymph # (Auto) 400 L (8092-0394) /uL Terrell # (Auto) 1600 H (0-900) /uL Eos # (Auto) 100 (0-450) /uL Baso # (Auto) 0 (0-100) /uL Sodium 135 L (137-145) mmol/L Potassium 2.8 L (3.4-5.1) mmol/L Chloride 100 (98-107) mmol/L Carbon Dioxide 30 (22-32) mmol/L BUN 9 (7-17) mg/dL Creatinine 0.62 (0.52-1.04) mg/dL Estimated GFR > 60 (>60) mL/min BUN/Creatinine Ratio 14.5 (6-22) Glucose 174 H (80-110) mg/dL Lactate 1.1 (0.7-2.1) mmol/L Calcium 8.1 L (8.4-10.2) mg/dL Total Bilirubin 0.5 (0.2-1.3) mg/dL AST 19 (14-36) IU/L ALT 18 (<35) IU/L Alkaline Phosphatase 70 (38-126) U/L Total Protein 6.0 L (6.3-8.2) g/dL Albumin 3.1 L (3.5-5.0) g/dL Globulin 2.9 (1.7-4.1) g/dL Albumin/Globulin Ratio 1.1 (1.0-2.8) Lipase < 10 L (23-300) U/L Urine Color Urine Appearance Urine pH (4.5-8.0) Ur Specific [place] (1.000-1.035) Urine Protein (Negative) Urine Glucose (UA) (Negative) g/dL Urine Ketones (NEGATIVE) Urine Occult Blood (Negative) Urine Nitrate (Negative) Urine Bilirubin (NEGATIVE) Urine Urobilinogen (0.2) E.U./dL Ur Leukocyte Esterase (NEGATIVE) Urine RBC (0-5/HPF) Urine WBC (0-5/HPF) Ur Squamous Epith Cells (0-5/HPF) Urine Bacteria (None) Ur Culture Indicated? 08/12/22 Range/Units 10:00 WBC (4.5-11.0) X10^3/uL RBC (4.0-5.2) X10^6/uL Hgb (12.0-16.0) g/dL Hct (36-46) % MCV (80-100) fL MCH (26-34) PG MCHC (30-36) % RDW (11.6-14.8) % Plt Count (150-400) X10^3/uL Neut % (Auto) (50-75) % Lymph % (Auto) (25-40) % Terrell % (Auto) (3-14) % Eos % (Auto) (2-4) % Baso % (Auto) (0-2) % Neut # (Auto) (7448-2176) /uL Lymph # (Auto) (8491-0474) /uL Terrell # (Auto) (0-900) /uL Eos # (Auto) (0-450) /uL Baso # (Auto) (0-100) /uL Sodium (137-145) mmol/L Potassium (3.4-5.1) mmol/L Chloride (98-107) mmol/L Carbon Dioxide (22-32) mmol/L BUN (7-17) mg/dL Creatinine (0.52-1.04) mg/dL Estimated GFR (>60) mL/min BUN/Creatinine Ratio (6-22) Glucose (80-110) mg/dL Lactate (0.7-2.1) mmol/L Calcium (8.4-10.2) mg/dL Total Bilirubin (0.2-1.3) mg/dL AST (14-36) IU/L ALT (<35) IU/L Alkaline Phosphatase (38-126) U/L Total Protein (6.3-8.2) g/dL Albumin (3.5-5.0) g/dL Globulin (1.7-4.1) g/dL Albumin/Globulin Ratio (1.0-2.8) Lipase (23-300) U/L Urine Color Yellow Urine Appearance Sl cloudy Urine pH 6.5 (4.5-8.0) Ur Specific [place] <=1.005 (1.000-1.035) Urine Protein Negative (Negative) Urine Glucose (UA) Negative (Negative) g/dL Urine Ketones Negative (NEGATIVE) Urine Occult Blood 3+ H (Negative) Urine Nitrate Negative (Negative) Urine Bilirubin Negative (NEGATIVE) Urine Urobilinogen 1.0 (0.2) E.U./dL Ur Leukocyte Esterase 2+ H (NEGATIVE) Urine RBC 10-30/hpf H (0-5/HPF) Urine WBC 5-10/hpf H (0-5/HPF) Ur Squamous Epith Cells 1-5 /hpf (0-5/HPF) Urine Bacteria Occasional (0-1) (None) Ur Culture Indicated? Cult not indicated Imaging Data CT scan - abdomen/pelvis: Radiologist's Impression: PROCEDURE:? CT ABDOMEN PELVIS W CON ? INDICATIONS:? Lower abd pain with purulent vaginal discharge ? TECHNIQUE:? After the administration of intravenous contrast, axial sections acquired from the lung bases to the pubic symphysis.? Coronal and sagittal reformats were performed.? For radiation dose reduction, the following was used:? automated exposure control, adjustment of mA and/or kV according to patient size.? ? COMPARISON:? [facility], CT, CT ABDOMEN PELVIS W CON, 08/06/2022, 8:11. ? FINDINGS:? Image quality:? Excellent.? ? Lung bases:? Unremarkable. Heart:? No significant findings. ? ABDOMEN: Liver:? Unremarkable.? ? Gallbladder:? Unremarkable. Biliary ducts:? Unremarkable.? ? Pancreas:? Unremarkable.? ? Spleen:? Unremarkable.? ? Adrenal Glands:? Unremarkable.? ? Kidneys and Ureters:? Unremarkable.? ? ? Stomach and Bowel:? There is no bowel obstruction.? No abnormal bowel wall thickening or mesenteric fat stranding.? No abscess collection. Peritoneum:? No abnormal intraperitoneal fluid.? No free air.? ? Ventral Wall: ? No hernias.? Abdominal Nodes:? No retroperitoneal or mesenteric adenopathy by size criteria.? Vessels:? Aorta and inferior vena cava are normal in size.? ? PELVIS: Pelvic Organs:? Again noted is irregular soft tissue thickening, central necrosis and pericervical fat stranding likely related to patient's known history of cervical cancer.? There is interval decrease in the amount of fluid within the cervix with multiple tiny pockets of free air within the endocervical canal which may represent recent instrumentation suggest clinical correlation.? There is also fluid distending endometrium with possible endometrial mass or fluid..? Likely left ovarian cyst is seen measures up to 2.6 x 2 cm in size.? No definite fistula is noted. Bladder:? Diffuse bladder wall thickening and hyperemia is again seen unchanged from prior study. Pelvic Nodes: No enlarged lymph nodes.? Miscellaneous: No hernias are seen. ? ? ? Bones:? Postsurgical changes are again noted in right sacroiliac joint/right sacrum.? No suspicious bony lesions.? No acute vertebral body compression fracture or spondylolisthesis. ? ? IMPRESSION: ? 1. Interval decrease in amount of fluid within endometrium and cervix with small amount of air seen within the endocervical canal which may represent recent instrumentation.? Diffuse cervical wall thickening, central necrosis and pericervical fat stranding is again seen likely related to patient's known cervical cancer.? Endometrial mass cannot be excluded. ? 2. No discrete drainable peritoneal abscess collection.? No bowel obstruction.? No free fluid or free air. ? 3. Possible left ovarian cyst as above. ? 4.? Diffuse bladder wall thickening, no definite bladder wall mass is seen. ? 5.? Other findings are not significantly changed from prior study.? MDM Narrative Medical decision making narrative: Patient is nontoxic-appearing but does have a leukocytosis. On exam she does have quite a bit of fluid and what appears to be purulent material from the cervix. I did not do a complete vaginal exam because of the discomfort that the patient was in. I did contact her pharmacovigilance safety expert office at [facility]. They reviewed the patient's records. Apparently within the past couple months she has been treated for PID. This does correspond to with the patient states that she had something similar a couple months ago. They recommended Rocephin and discharged home with doxycycline and Flagyl. I did culture the material from the vagina. She was also given potassium. She is tolerating oral intake. She has an appointment scheduled on Friday at 1400 hours with her grey roll worker provider. She was informed of this. Patient is stable for discharge home. She was given return precautions. She expressed understanding and agreement. Discharge Plan Departure Patient Disposition: Home Clinical Impression: PID (acute pelvic inflammatory disease) Instructions: DI for Pelvic Inflammatory Disease (PID) Activity Restrictions/Additional Instructions: Please take the antibiotics as directed. They were sent to [facility] in [place]. You also have an appointment with your pharmacovigilance safety expert provider at [facility] on Friday08/14/2022 at 1400 hours. Return to the emergency department for new or worsening symptoms. Prescriptions: New metronidazole 500 mg tablet 500 mg PO BID 14 Days Qty: 28 0RF doxycycline hyclate 100 mg capsule 100 mg PO BID 14 Days Qty: 28 0RF hydrocodone-acetaminophen 5-325 mg tablet 1 tab PO Q8H PRN (Reason: pain) Qty: 10 0RF No Action ondansetron 4 mg tablet,disintegrating 4 mg PO Q8H PRN (Reason: nausea and vomiting) Qty: 10 0RF Referrals: Jude Miranda DO [Primary Care Provider] - Stand Alone Forms: Patient Portal/API
--- NOTE | 2022-08-12 08:33 | DI.CT.S_ITS ---
PROCEDURE: CT ABDOMEN PELVIS W CON INDICATIONS: Lower abd pain with purulent vaginal discharge TECHNIQUE: After the administration of intravenous contrast, axial sections acquired from the lung bases to the pubic symphysis. Coronal and sagittal reformats were performed. For radiation dose reduction, the following was used: automated exposure control, adjustment of mA and/or kV according to patient size. COMPARISON: [facility], CT, CT ABDOMEN PELVIS W CON, 08/06/2022, 8:11. FINDINGS: Image quality: Excellent. Lung bases: Unremarkable. Heart: No significant findings. ABDOMEN: Liver: Unremarkable. Gallbladder: Unremarkable. Biliary ducts: Unremarkable. Pancreas: Unremarkable. Spleen: Unremarkable. Adrenal Glands: Unremarkable. Kidneys and Ureters: Unremarkable. Stomach and Bowel: There is no bowel obstruction. No abnormal bowel wall thickening or mesenteric fat stranding. No abscess collection. Peritoneum: No abnormal intraperitoneal fluid. No free air. Ventral Wall: No hernias. Abdominal Nodes: No retroperitoneal or mesenteric adenopathy by size criteria. Vessels: Aorta and inferior vena cava are normal in size. PELVIS: Pelvic Organs: Again noted is irregular soft tissue thickening, central necrosis and pericervical fat stranding likely related to patient's known history of cervical cancer. There is interval decrease in the amount of fluid within the cervix with multiple tiny pockets of free air within the endocervical canal which may represent recent instrumentation suggest clinical correlation. There is also fluid distending endometrium with possible endometrial mass or fluid.. Likely left ovarian cyst is seen measures up to 2.6 x 2 cm in size. No definite fistula is noted. Bladder: Diffuse bladder wall thickening and hyperemia is again seen unchanged from prior study. Pelvic Nodes: No enlarged lymph nodes. Miscellaneous: No hernias are seen. Bones: Postsurgical changes are again noted in right sacroiliac joint/right sacrum. No suspicious bony lesions. No acute vertebral body compression fracture or spondylolisthesis. IMPRESSION: 1. Interval decrease in amount of fluid within endometrium and cervix with small amount of air seen within the endocervical canal which may represent recent instrumentation. Diffuse cervical wall thickening, central necrosis and pericervical fat stranding is again seen likely related to patient's known cervical cancer. Endometrial mass cannot be excluded. 2. No discrete drainable peritoneal abscess collection. No bowel obstruction. No free fluid or free air. 3. Possible left ovarian cyst as above. 4. Diffuse bladder wall thickening, no definite bladder wall mass is seen. 5. Other findings are not significantly changed from prior study. Dictated by: Wagner Barnes M.D. on 08/12/2022 at 9:08 Approved by: Wagner Barnes M.D. on 08/12/2022 at 9:28
[2022-08-12 08:56] LABS: Add Manual Diff / Slide Review NO; Basophils Absolute Auto 0 /uL (0-100); Basophils Percent Auto 0.1 % (0-2); Eosinophils Absolute Auto 100 /uL (0-450); Eosinophils Percent Auto 0.4 % (2-4); Hematocrit 32.6 % (36-46); Hemoglobin 11.2 g/dL (12.0-16.0); Lymphocytes Absolute Auto 400 /uL (1100-4500); Lymphocytes Percent Auto 2.3 % (25-40); Mean Corpuscular HGB Conc 34.2 % (30-36); Mean Corpuscular Hemoglobin 29.9 PG (26-34); Mean Corpuscular Volume 87.4 fL (80-100); Monocytes Absolute Auto 1600 /uL (0-900); Neutrophils Absolute Auto 15300 /uL (1500-7000); Neutrophils Percent Auto 88.2 % (50-75); Platelet Count 281 X10^3/uL (150-400); Red Blood Cell Count 3.73 X10^6/uL (4.0-5.2); Red Cell Distribution Width 13.4 % (11.6-14.8); White Blood Cell Count 17.4 X10^3/uL (4.5-11.0)
[2022-08-12 09:07] LABS: Alanine Aminotransferase 18 IU/L (<35); Albumin 3.1 g/dL (3.5-5.0); Albumin Globulin Ratio 1.1 (1.0-2.8); Alkaline Phosphatase 70 U/L (38-126); Aspartate Aminotransferase 19 IU/L (14-36); BUN Creatinine Ratio 14.5 (6-22); Bilirubin Total 0.5 mg/dL (0.2-1.3); Blood Urea Nitrogen 9 mg/dL (7-17); Calcium 8.1 mg/dL (8.4-10.2); Carbon Dioxide 30 mmol/L (22-32); Chloride 100 mmol/L (98-107); Estimated Glomerular Filt Rate > 60 mL/min (>60); Globulin 2.9 g/dL (1.7-4.1); Glucose 174 mg/dL (80-110); HEMOLYSIS < 15 (0-50); Potassium 2.8 mmol/L (3.4-5.1); Sodium 135 mmol/L (137-145)
[2022-08-12 09:08] LABS: Lactate (Lactic Acid) 1.1 mmol/L (0.7-2.1)
[2022-08-12 09:10] LABS: Lipase < 10 U/L (23-300)
[2022-08-12] MEDS: SODIUM CHLORIDE 0.9% 1,000 ML 1000 ML IV (09:23)
[2022-08-12] MEDS: cefTRIAXone 1,000 MG in SODIUM CHLORIDE 0.9% 100 ML 200 MG IV ×2 (09:24→11:20)
[2022-08-12] MEDS: MORPHINE 4 MG/ML INJ IV ×2 (09:45→12:11)
[2022-08-12 10:21] LABS: Appearance Urine UA SL CLOUDY; Bilirubin Urine UA NEGATIVE (NEGATIVE); Color Urine UA YELLOW; Glucose Urine UA NEGATIVE (Negative); Ketones Urine UA NEGATIVE (NEGATIVE); Leukocyte Esterase Urine UA 2+ (NEGATIVE); Nitrite Urine UA NEGATIVE (Negative); Occult Blood Urine UA 3+ (Negative); Protein Urine UA NEGATIVE (Negative); Specific Gravity Urine UA <=1.005 (1.000-1.035); pH Urine UA 6.5 (4.5-8.0)
[2022-08-12 10:31] LABS: Bacteria Urine Occasional (0-1); Culture Indicated Urine Cult Not Indicated; RBC Urine 10-30/HPF (0-5/HPF); Squamous Epithelial Cell Urine 1-5 /HPF (0-5/HPF); WBC Urine 5-10/HPF (0-5/HPF)
[2022-08-12] MEDS: metroNIDAZOLE 500 MG TABLET PO (11:20)
[2022-08-12] MEDS: POTASSIUM CHLORIDE IN WATER 10 MEQ/100 ML PIGGYBACK 100 MEQ IV ×2 (11:20→12:20)
[2022-08-12] MEDS: DOXYCYCLINE HYCLATE 100 MG TABLET PO (11:20)
[2022-08-12] MEDS: POTASSIUM CHLORIDE 20 MEQ TAB PO (12:15)
== END 2022-08-12 14:17 | disposition home or self-care (01) ==
PROVIDERS: Emergency Provider Emergency Medicine; PCP Family Medicine
DX: N73.9 Female pelvic inflammatory disease, unspecified (principal)
CPT/HCPCS: 74177; 80053; 81001; 83605; 83690; 85025; 87040; 87070; 87086; 87205; 87210; 87220; 96361; 96365; 96366; 96375; 96376; 99284; J0696; J1642; J2270; Q9967

== ENCOUNTER → 2022-09-24 10:26 | Outpatient (CLI) | payer MEDICARE, OTHER, SELFPAY | PROVIDERS: PCP Family Medicine; Visit Provider Surgery | DX: L59.8 Other specified disorders of the skin and subcutaneous tissue related to radiation (principal); N90.89 Other specified noninflammatory disorders of vulva and perineum; N89.5 Stricture and atresia of vagina; R10.2 Pelvic and perineal pain; C53.9 Malignant neoplasm of cervix uteri, unspecified | CPT/HCPCS: 99204; 99212 ==

== ENCOUNTER → 2022-10-21 08:21 | Outpatient (CLI) | payer MEDICARE, OTHER, SELFPAY ==
--- NOTE | 2022-10-21 08:23 | DI.RAD.S_ITS ---
PROCEDURE: XR CHEST 2V INDICATIONS: Eval for Hyperbaric Oxygen therapy TECHNIQUE: 2 views of the chest were acquired. COMPARISON: [facility], CR, XR CHEST 1V, 04/29/2022, 12:49. FINDINGS: Surgical changes and devices: Right-sided Port-A-Cath Lungs and pleura: Lungs are clear. No pleural effusions or pneumothorax. Mediastinum: Mediastinal contours are normal. Heart size is normal. Bones and chest wall: Multiple right-sided rib fractures with exuberant callus remains unchanged the prior. Right basilar atelectasis and or scarring noted in the costophrenic sulcus. IMPRESSION: Old healed right-sided rib fractures, stable Approved by: Jude Catherine M.D. on 10/21/2022 at 17:29
== END ==
PROVIDERS: PCP Family Medicine; Referring Provider Surgery; Visit Provider Surgery
DX: L59.8 Other specified disorders of the skin and subcutaneous tissue related to radiation (principal); Z87.81 Personal history of (healed) traumatic fracture; Z95.828 Presence of other vascular implants and grafts
CPT/HCPCS: 71046

== ENCOUNTER → 2022-10-30 13:10 | Outpatient (CLI) | payer MEDICARE, OTHER, SELFPAY | PROVIDERS: PCP Family Medicine; Visit Provider Surgery | DX: L59.8 Other specified disorders of the skin and subcutaneous tissue related to radiation (principal); N90.89 Other specified noninflammatory disorders of vulva and perineum; N89.5 Stricture and atresia of vagina; R10.2 Pelvic and perineal pain | CPT/HCPCS: 99183; G0277 ==

== ENCOUNTER → 2022-11-04 13:38 | Outpatient (CLI) | payer MEDICARE, OTHER, SELFPAY | PROVIDERS: PCP Family Medicine; Visit Provider Surgery | DX: L59.8 Other specified disorders of the skin and subcutaneous tissue related to radiation (principal); N90.89 Other specified noninflammatory disorders of vulva and perineum; N89.5 Stricture and atresia of vagina; R10.2 Pelvic and perineal pain | CPT/HCPCS: 99183; G0277 ==

== ENCOUNTER → 2022-11-05 13:26 | Outpatient (CLI) | payer MEDICARE, OTHER, SELFPAY | PROVIDERS: PCP Family Medicine; Visit Provider Surgery | DX: L59.8 Other specified disorders of the skin and subcutaneous tissue related to radiation (principal); N90.89 Other specified noninflammatory disorders of vulva and perineum; N89.5 Stricture and atresia of vagina; R10.2 Pelvic and perineal pain | CPT/HCPCS: 99183; G0277 ==

== ENCOUNTER → 2022-11-06 13:26 | Outpatient (CLI) | payer MEDICARE, OTHER, SELFPAY | PROVIDERS: PCP Family Medicine; Visit Provider Surgery | DX: L59.8 Other specified disorders of the skin and subcutaneous tissue related to radiation (principal); N90.89 Other specified noninflammatory disorders of vulva and perineum; N89.5 Stricture and atresia of vagina; R10.2 Pelvic and perineal pain | CPT/HCPCS: 99183; G0277 ==

== ENCOUNTER → 2022-11-07 13:34 | Outpatient (CLI) | payer MEDICARE, OTHER, SELFPAY | PROVIDERS: PCP Family Medicine; Visit Provider Surgery | DX: L59.8 Other specified disorders of the skin and subcutaneous tissue related to radiation (principal); N90.89 Other specified noninflammatory disorders of vulva and perineum; N89.5 Stricture and atresia of vagina; R10.2 Pelvic and perineal pain | CPT/HCPCS: 99183; G0277 ==

== ENCOUNTER → 2022-11-08 13:12 | Outpatient (CLI) | payer MEDICARE, OTHER, SELFPAY | PROVIDERS: PCP Family Medicine; Visit Provider Surgery | DX: L59.8 Other specified disorders of the skin and subcutaneous tissue related to radiation (principal); N90.89 Other specified noninflammatory disorders of vulva and perineum; N89.5 Stricture and atresia of vagina; R10.2 Pelvic and perineal pain | CPT/HCPCS: 99183; G0277 ==

== ENCOUNTER → 2022-11-11 13:17 | Outpatient (CLI) | payer MEDICARE, OTHER, SELFPAY | PROVIDERS: PCP Family Medicine; Visit Provider Surgery | DX: L59.8 Other specified disorders of the skin and subcutaneous tissue related to radiation (principal); N90.89 Other specified noninflammatory disorders of vulva and perineum; N89.5 Stricture and atresia of vagina; R10.2 Pelvic and perineal pain | CPT/HCPCS: 99183; 99211; 99213; G0277 ==

== ENCOUNTER → 2022-11-12 13:48 | Outpatient (CLI) | payer MEDICARE, OTHER, SELFPAY | PROVIDERS: PCP Family Medicine; Visit Provider Surgery | DX: L59.8 Other specified disorders of the skin and subcutaneous tissue related to radiation (principal); N90.89 Other specified noninflammatory disorders of vulva and perineum; N89.5 Stricture and atresia of vagina; R10.2 Pelvic and perineal pain | CPT/HCPCS: 99183; G0277 ==

== ENCOUNTER → 2022-11-13 13:11 | Outpatient (CLI) | payer MEDICARE, OTHER, SELFPAY | PROVIDERS: PCP Family Medicine; Visit Provider Surgery | DX: L59.8 Other specified disorders of the skin and subcutaneous tissue related to radiation (principal); N90.89 Other specified noninflammatory disorders of vulva and perineum; N89.5 Stricture and atresia of vagina; R10.2 Pelvic and perineal pain | CPT/HCPCS: 99183; G0277 ==

== ENCOUNTER → 2022-11-15 14:23 | Outpatient (CLI) | payer MEDICARE, OTHER, SELFPAY | PROVIDERS: PCP Family Medicine; Visit Provider Surgery | DX: L59.8 Other specified disorders of the skin and subcutaneous tissue related to radiation (principal); N90.89 Other specified noninflammatory disorders of vulva and perineum; N89.5 Stricture and atresia of vagina; R10.2 Pelvic and perineal pain | CPT/HCPCS: 99183; G0277 ==

== ENCOUNTER → 2022-11-18 14:09 | Outpatient (CLI) | payer MEDICARE, OTHER, SELFPAY | PROVIDERS: PCP Family Medicine; Visit Provider Surgery | DX: L59.8 Other specified disorders of the skin and subcutaneous tissue related to radiation (principal); N90.89 Other specified noninflammatory disorders of vulva and perineum; N89.5 Stricture and atresia of vagina; R10.2 Pelvic and perineal pain | CPT/HCPCS: 99183; G0277 ==

== ENCOUNTER → 2022-11-19 13:56 | Outpatient (CLI) | payer MEDICARE, OTHER, SELFPAY | PROVIDERS: PCP Family Medicine; Visit Provider Surgery | DX: L59.8 Other specified disorders of the skin and subcutaneous tissue related to radiation (principal); N90.89 Other specified noninflammatory disorders of vulva and perineum; N89.5 Stricture and atresia of vagina; R10.2 Pelvic and perineal pain | CPT/HCPCS: 99183; G0277 ==

== ENCOUNTER → 2022-11-20 14:04 | Outpatient (CLI) | payer MEDICARE, OTHER, SELFPAY | PROVIDERS: PCP Family Medicine; Visit Provider Surgery | DX: L59.8 Other specified disorders of the skin and subcutaneous tissue related to radiation (principal); N90.89 Other specified noninflammatory disorders of vulva and perineum; N89.5 Stricture and atresia of vagina; R10.2 Pelvic and perineal pain | CPT/HCPCS: 99183; G0277 ==

== ENCOUNTER → 2022-11-22 14:16 | Outpatient (CLI) | payer MEDICARE, OTHER, SELFPAY | PROVIDERS: PCP Family Medicine; Visit Provider Physician Assistant | DX: L59.8 Other specified disorders of the skin and subcutaneous tissue related to radiation (principal); N90.89 Other specified noninflammatory disorders of vulva and perineum; N89.5 Stricture and atresia of vagina; R10.2 Pelvic and perineal pain | CPT/HCPCS: 99183; G0277 ==

== ENCOUNTER → 2022-11-25 14:18 | Outpatient (CLI) | payer MEDICARE, OTHER, SELFPAY | PROVIDERS: PCP Family Medicine; Visit Provider Surgery | DX: L59.8 Other specified disorders of the skin and subcutaneous tissue related to radiation (principal); N90.89 Other specified noninflammatory disorders of vulva and perineum; N89.5 Stricture and atresia of vagina; R10.2 Pelvic and perineal pain | CPT/HCPCS: 99183; G0277 ==

== ENCOUNTER → 2022-11-26 15:22 | Outpatient (CLI) | payer MEDICARE, OTHER, SELFPAY | PROVIDERS: PCP Family Medicine; Referring Provider Family Medicine; Visit Provider Surgery | DX: L59.8 Other specified disorders of the skin and subcutaneous tissue related to radiation (principal); N90.89 Other specified noninflammatory disorders of vulva and perineum; N89.5 Stricture and atresia of vagina; R10.2 Pelvic and perineal pain | CPT/HCPCS: 99183; G0277 ==

== ENCOUNTER → 2022-11-27 14:17 | Outpatient (CLI) | payer MEDICARE, OTHER, SELFPAY | PROVIDERS: PCP Family Medicine; Visit Provider Surgery | DX: L59.8 Other specified disorders of the skin and subcutaneous tissue related to radiation (principal); N90.89 Other specified noninflammatory disorders of vulva and perineum; N89.5 Stricture and atresia of vagina; R10.2 Pelvic and perineal pain | CPT/HCPCS: 99183; G0277 ==

== ENCOUNTER → 2022-11-28 15:22 | Outpatient (CLI) | payer MEDICARE, OTHER, SELFPAY | PROVIDERS: PCP Family Medicine; Visit Provider Surgery | DX: L59.8 Other specified disorders of the skin and subcutaneous tissue related to radiation (principal); N90.89 Other specified noninflammatory disorders of vulva and perineum; N89.5 Stricture and atresia of vagina; R10.2 Pelvic and perineal pain | CPT/HCPCS: 99183; G0277 ==

== ENCOUNTER → 2022-11-29 13:04 | Outpatient (CLI) | payer MEDICARE, OTHER, SELFPAY | PROVIDERS: PCP Family Medicine; Referring Provider Podiatrist; Visit Provider Surgery | DX: L59.8 Other specified disorders of the skin and subcutaneous tissue related to radiation (principal); N90.89 Other specified noninflammatory disorders of vulva and perineum; N89.5 Stricture and atresia of vagina; R10.2 Pelvic and perineal pain | CPT/HCPCS: 99183; G0277 ==

== ENCOUNTER → 2022-12-02 14:18 | Outpatient (CLI) | payer MEDICARE, OTHER, SELFPAY | PROVIDERS: PCP Family Medicine; Visit Provider Surgery | DX: L59.8 Other specified disorders of the skin and subcutaneous tissue related to radiation (principal); N90.89 Other specified noninflammatory disorders of vulva and perineum; N89.5 Stricture and atresia of vagina; R10.2 Pelvic and perineal pain | CPT/HCPCS: 99183; G0277 ==

== ENCOUNTER → 2022-12-03 14:47 | Outpatient (CLI) | payer MEDICARE, OTHER, SELFPAY | PROVIDERS: PCP Family Medicine; Visit Provider Surgery | DX: L59.8 Other specified disorders of the skin and subcutaneous tissue related to radiation (principal); N90.89 Other specified noninflammatory disorders of vulva and perineum; N89.5 Stricture and atresia of vagina; R10.2 Pelvic and perineal pain | CPT/HCPCS: 99183; G0277 ==

== ENCOUNTER → 2022-12-04 14:33 | Outpatient (CLI) | payer MEDICARE, OTHER, SELFPAY | PROVIDERS: PCP Family Medicine; Visit Provider Surgery | DX: L59.8 Other specified disorders of the skin and subcutaneous tissue related to radiation (principal); N90.89 Other specified noninflammatory disorders of vulva and perineum; N89.5 Stricture and atresia of vagina; R10.2 Pelvic and perineal pain | CPT/HCPCS: 99183; G0277 ==

== ENCOUNTER → 2022-12-05 14:44 | Outpatient (CLI) | payer MEDICARE, OTHER, SELFPAY | PROVIDERS: PCP Family Medicine; Referring Provider Family Medicine; Visit Provider Surgery | DX: L59.8 Other specified disorders of the skin and subcutaneous tissue related to radiation (principal); N90.89 Other specified noninflammatory disorders of vulva and perineum; N89.5 Stricture and atresia of vagina; R10.2 Pelvic and perineal pain | CPT/HCPCS: 99183; G0277 ==

== ENCOUNTER → 2022-12-06 13:54 | Outpatient (CLI) | payer MEDICARE, OTHER, SELFPAY | PROVIDERS: PCP Family Medicine; Visit Provider Physician Assistant | DX: L59.8 Other specified disorders of the skin and subcutaneous tissue related to radiation (principal); N90.89 Other specified noninflammatory disorders of vulva and perineum; N89.5 Stricture and atresia of vagina; R10.2 Pelvic and perineal pain | CPT/HCPCS: 99183; G0277 ==

== ENCOUNTER → 2022-12-10 14:43 | Outpatient (CLI) | payer MEDICARE, OTHER, SELFPAY | PROVIDERS: PCP Family Medicine; Visit Provider Surgery | DX: L59.8 Other specified disorders of the skin and subcutaneous tissue related to radiation (principal); N90.89 Other specified noninflammatory disorders of vulva and perineum; N89.5 Stricture and atresia of vagina; R10.2 Pelvic and perineal pain | CPT/HCPCS: 99183; G0277 ==

== ENCOUNTER → 2022-12-11 14:51 | Outpatient (CLI) | payer MEDICARE, OTHER, SELFPAY | PROVIDERS: PCP Family Medicine; Visit Provider Surgery | DX: L59.8 Other specified disorders of the skin and subcutaneous tissue related to radiation (principal); N90.89 Other specified noninflammatory disorders of vulva and perineum; N89.5 Stricture and atresia of vagina; R10.2 Pelvic and perineal pain | CPT/HCPCS: 99183; G0277 ==

== ENCOUNTER → 2022-12-12 13:55 | Outpatient (CLI) | payer MEDICARE, OTHER, SELFPAY | PROVIDERS: PCP Family Medicine; Visit Provider Surgery | DX: L59.8 Other specified disorders of the skin and subcutaneous tissue related to radiation (principal); N90.89 Other specified noninflammatory disorders of vulva and perineum; N89.5 Stricture and atresia of vagina; R10.2 Pelvic and perineal pain | CPT/HCPCS: 99183; G0277 ==

== ENCOUNTER → 2022-12-17 13:46 | Outpatient (CLI) | payer MEDICARE, OTHER, SELFPAY | PROVIDERS: PCP Family Medicine; Visit Provider Surgery | DX: L59.8 Other specified disorders of the skin and subcutaneous tissue related to radiation (principal); N90.89 Other specified noninflammatory disorders of vulva and perineum; N89.5 Stricture and atresia of vagina; R10.2 Pelvic and perineal pain | CPT/HCPCS: 99183; G0277 ==

== ENCOUNTER → 2022-12-19 08:57 | Outpatient (CLI) | payer MEDICARE, OTHER, SELFPAY | PROVIDERS: PCP Family Medicine; Visit Provider Surgery | DX: L59.8 Other specified disorders of the skin and subcutaneous tissue related to radiation (principal); N90.89 Other specified noninflammatory disorders of vulva and perineum; N89.5 Stricture and atresia of vagina; R10.2 Pelvic and perineal pain | CPT/HCPCS: 99183; G0277 ==

== ENCOUNTER → 2022-12-20 08:34 | Outpatient (CLI) | payer MEDICARE, OTHER, SELFPAY | PROVIDERS: PCP Family Medicine; Visit Provider Physician Assistant | DX: L59.8 Other specified disorders of the skin and subcutaneous tissue related to radiation (principal); R10.2 Pelvic and perineal pain | CPT/HCPCS: 99211; 99213 ==

== ENCOUNTER → 2023-02-07 09:20 | Outpatient (CLI) | payer MEDICARE, OTHER, SELFPAY | LOC: WC 09:21 | PROVIDERS: PCP Family Medicine; Referring Provider Physician Assistant; Visit Provider Physician Assistant | DX: L59.8 Other specified disorders of the skin and subcutaneous tissue related to radiation (principal) | CPT/HCPCS: 99211; 99212 ==

== ENCOUNTER → 2023-02-18 12:08 | Outpatient (CLI) | payer MEDICARE, OTHER, SELFPAY | LOC: WC 12:10 | PROVIDERS: PCP Family Medicine; Visit Provider Surgery | DX: Z09 Encounter for follow-up examination after completed treatment for conditions other than malignant neoplasm (principal); H53.9 Unspecified visual disturbance; Z87.2 Personal history of diseases of the skin and subcutaneous tissue; Z85.41 Personal history of malignant neoplasm of cervix uteri; Z92.3 Personal history of irradiation; Z92.21 Personal history of antineoplastic chemotherapy | CPT/HCPCS: 99212; 99213 ==